=== PATIENT | female | born 1955 | race Caucasian/White ===

== ENCOUNTER 2018-08-03 14:00 | Outpatient (RCR) | payer OTHER, MEDICARE, SELFPAY | END 2018-08-03 14:05 | disposition home or self-care (01) | LOC: PT 14:00 | PROVIDERS: Visit Provider Family Medicine | DX: M54.9 Dorsalgia, unspecified (principal); M54.32 Sciatica, left side | CPT/HCPCS: 97014; 97110; 97163; G0283 ==

== ENCOUNTER → 2021-05-05 20:03 | Outpatient (CLI) | payer OTHER, MEDICARE, SELFPAY | PROVIDERS: Visit Provider Nurse Practitioner Family | DX: Z20.822 Contact with and (suspected) exposure to COVID-19 (principal) | CPT/HCPCS: C9803; U0003; U0005 ==

== ENCOUNTER → 2021-06-12 13:09 | Outpatient (CLI) | payer OTHER, MEDICARE, SELFPAY | PROVIDERS: Visit Provider Nurse Practitioner | DX: Z20.822 Contact with and (suspected) exposure to COVID-19 (principal) | CPT/HCPCS: C9803; U0003; U0005 ==

== ENCOUNTER → 2021-06-27 16:58 | Outpatient (CLI) | payer OTHER, MEDICARE, SELFPAY | PROVIDERS: Visit Provider Nurse Practitioner | DX: U07.1 COVID-19 (principal) | CPT/HCPCS: C9803; U0003; U0005 ==

== ENCOUNTER → 2021-07-02 16:25 | Outpatient (CLI) | payer OTHER, MEDICARE, SELFPAY | PROVIDERS: PCP Emergency Medicine; Visit Provider Nurse Practitioner | DX: U07.1 COVID-19 (principal) | CPT/HCPCS: C9803; U0003; U0005 ==

== ENCOUNTER → 2021-07-04 17:52 | Outpatient (CLI) | payer OTHER, MEDICARE, SELFPAY | PROVIDERS: Visit Provider Nurse Practitioner | DX: U07.1 COVID-19 (principal) | CPT/HCPCS: C9803; U0003; U0005 ==

== ENCOUNTER 2022-09-04 12:41 | Emergency (ER) | payer OTHER, MEDICARE, SELFPAY ==
[2022-09-04 13:00] VITALS: BP 104/42; PULSE 74; RESP 20; TEMP 36.7; O2SAT 95; BMI 34.7
--- NOTE | 2022-09-04 13:13 | EXP.UTC ---
Discharge Plan Disposition Patient Disposition: Home, Self-Care Condition: Good Prescriptions Prescriptions: New nitrofurantoin monohyd/m-cryst [Macrobid] 100 mg capsule 100 mg PO Q12H 7 Days Qty: 14 0RF Rx Instructions: must administer with a meal/food No Action amoxicillin 500 mg capsule 500 mg PO Q12H 10 Days Qty: 20 0RF benazepril 20 mg tablet 20 mg PO ONCE furosemide 40 mg tablet 40 mg PO ONCE potassium chloride 10 mEq capsule, extended release 10 meq PO BID clopidogrel [Plavix] 75 mg tablet 75 mg PO ONCE pantoprazole [Protonix] 40 mg tablet,delayed release (DR/EC) 40 mg PO QAM aspirin [Adult Low Dose Aspirin] 81 mg tablet,delayed release (DR/EC) 81 mg PO ONCE atorvastatin [Lipitor] 40 mg tablet 40 mg PO ONCE gabapentin 100 mg capsule 100 mg PO QHS levetiracetam [Keppra] 250 mg tablet 250 mg PO ONCE multivitamin,hd-xgso-pjyhxouh [Complete Multivitamin] tablet 1 tab PO ONCE metoprolol succinate 25 mg tablet extended release 24 hr 25 mg PO ONCE Referrals Follow up/Referrals: Deangelo Paulino MD [Primary Care Provider] - See instructions Activity Restrictions/Add. Instructions Additional Instructions/Restrictions: *Increase fluids. Water not Soda or Tea *Start antibiotic immediately and be sure to take as ordered for the FULL length of time although you should start to see improvement over the next 48 hours *Be SURE to follow up anytime for new or worsening symptoms with your family doctor. AND in 48 hours for urine culture results with your family doctor, if you do not have a doctor then you may call back to the [facility] for urine culture results and further treatment. We do recommend that you choose and establish care with a Primary Care Physician. ?AND follow up with them ?in 10-14 days to repeat UA to ensure infection is resolved and blood no longer present *Be sure to let your PCP know that we sent urine cultures from the [facility] so they can follow up to ensure that you area the on the correct antibiotic Call your doctor office and make appointment for 48 hours (2 days from today) ?to follow up and get the results of your urine culture and further treatment Clinical Impressions Clinical Impression: UTI (urinary tract infection) Instructions Patient Instructions: DI for Urinary Tract Infection (UTI), Urinary Tract Infection, Nitrofurantoin Discharge [place] [facility] [place] Stated complaint: pressure when urinates Time Seen by Provider: 09/04/22 13:13 History of Present Illness Provider Complaint: Patient states that she feels like she may have a UTI States that she is having pressure like feeling when she urinates along with feeling or urgency and frequency States that feels like what it did when she had a UTI before Denies fever chills or pain Related Data Home Medications Medication Instructions Recorded Confirmed aspirin 81 mg tablet,delayed 81 mg PO ONCE 08/20/17 05/05/21 release (Adult Low Dose Aspirin) atorvastatin 40 mg tablet (Lipitor) 40 mg PO ONCE 08/20/17 05/05/21 benazepril 20 mg tablet 20 mg PO ONCE 08/20/17 05/05/21 clopidogrel 75 mg tablet (Plavix) 75 mg PO ONCE 08/20/17 05/05/21 furosemide 40 mg tablet 40 mg PO ONCE 08/20/17 05/05/21 gabapentin 100 mg capsule 100 mg PO QHS 08/20/17 05/05/21 levetiracetam 250 mg tablet 250 mg PO ONCE 08/20/17 05/05/21 (Keppra) metoprolol succinate 25 mg 25 mg PO ONCE 08/20/17 05/05/21 tablet,extended release 24 hr multivitamin,sh-rswt-ghluhhmx 1 tab PO ONCE 08/20/17 05/05/21 (Complete Multivitamin tablet) pantoprazole 40 mg tablet,delayed 40 mg PO QAM 08/20/17 05/05/21 release (Protonix) potassium chloride 10 mEq 10 meq PO BID 08/20/17 05/05/21 capsule,extended release Previous Rx's Medication Instructions Recorded amoxicillin 500 mg capsule 500 mg PO Q12H sinusitis 10 days 05/05/21 #20 caps nitrofurantoin 100 mg PO Q12H 7
[2022-09-04 13:14] VITALS: BP 104/42; PULSE 74; RESP 20; TEMP 36.7; O2SAT 95
[2022-09-04 13:19] LABS: Apearance,Urine Cloudy (Clear); Color,Urine Yellow (Yellow)
[2022-09-04 13:20] LABS: Specific Gravity, Urine 1.015 (1.005-1.030)
[2022-09-04 13:21] LABS: Bilirubin,Urine Negative (Negative); Blood, Urine 3+ (Negative); Glucose,Urine (UA) Negative (Negative); Ketones,Urine Negative (Negative); Protein,Urine 2+ (Negative); UTC Leukocyte Esterase,Urine 2+ (Negative); UTC Nitrate,Urine Negative (Negative); Urobilinogen,Urine 0.2 EU/dl (0.2)
== END 2022-09-04 13:28 | disposition home or self-care (01) ==
PROVIDERS: Emergency Provider Nurse Practitioner; PCP Family Medicine
DX: N39.0 Urinary tract infection, site not specified (principal); B96.20 Unspecified Escherichia coli [E. coli] as the cause of diseases classified elsewhere
CPT/HCPCS: 81003; 87086; 87088; 87186; 99212; 99214; G0463

== ENCOUNTER 2022-10-22 11:39 | Emergency (ER) | payer OTHER, MEDICARE, SELFPAY ==
[2022-10-22 12:04] VITALS: BP 130/59; PULSE 63; RESP 16; TEMP 36.9; O2SAT 97; BMI 42.0
[2022-10-22 12:05] LABS: Apearance,Urine Cloudy (Clear); Color,Urine Dark Yellow (Yellow); PH,Urine 5.5 (5.0-8.5); Protein,Urine 1+ (Negative)
[2022-10-22 12:06] LABS: Bilirubin,Urine Negative (Negative); Blood, Urine 3+ (Negative); Glucose,Urine (UA) Negative (Negative); Ketones,Urine Negative (Negative); UTC Leukocyte Esterase,Urine 3+ (Negative); UTC Nitrate,Urine Negative (Negative); Urobilinogen,Urine 0.2 EU/dl (0.2)
--- NOTE | 2022-10-22 12:14 | EXP.UTC ---
Discharge Plan Disposition Patient Disposition: Home, Self-Care Condition: Good Prescriptions Prescriptions: New cefdinir 300 mg capsule 300 mg PO BID 10 Days Qty: 20 0RF phenazopyridine [Pyridium] 200 mg tablet 200 mg PO Q8H 2 Days Qty: 6 0RF No Action amoxicillin 500 mg capsule 500 mg PO Q12H 10 Days Qty: 20 0RF benazepril 20 mg tablet 20 mg PO ONCE furosemide 40 mg tablet 40 mg PO ONCE potassium chloride 10 mEq capsule, extended release 10 meq PO BID clopidogrel [Plavix] 75 mg tablet 75 mg PO ONCE pantoprazole [Protonix] 40 mg tablet,delayed release (DR/EC) 40 mg PO QAM aspirin [Adult Low Dose Aspirin] 81 mg tablet,delayed release (DR/EC) 81 mg PO ONCE atorvastatin [Lipitor] 40 mg tablet 40 mg PO ONCE gabapentin 100 mg capsule 100 mg PO QHS levetiracetam [Keppra] 250 mg tablet 250 mg PO ONCE multivitamin,yq-cksy-stdquxzi [Complete Multivitamin] tablet 1 tab PO ONCE metoprolol succinate 25 mg tablet extended release 24 hr 25 mg PO ONCE nitrofurantoin monohyd/m-cryst [Macrobid] 100 mg capsule 100 mg PO Q12H 7 Days Qty: 14 0RF Rx Instructions: must administer with a meal/food Referrals Follow up/Referrals: Deangelo Paulino MD [Primary Care Provider] - See instructions Activity Restrictions/Add. Instructions Additional Instructions/Restrictions: *Increase fluids. Water not Soda or Tea *Start antibiotic immediately and be sure to take as ordered for the FULL length of time although you should start to see improvement over the next 48 hours *Pyridium as needed Remember this medication will turn your urine . This is normal but it will stain what ever it gets on *You should not use Pyridium for more than 48 hours. If so , follow up with your primary physician to review urine culture and ensure that antibiotic is adequate for infection *Be SURE to follow up anytime for new or worsening symptoms with your family doctor. AND in 48 hours for urine culture results with your family doctor, if you do not have a doctor then you may call back to the [facility] [[email or web address]] for urine culture results and further treatment. We do recommend that you choose and establish care with a Primary Care Physician. ?AND follow up with them ?in 10-14 days to repeat UA to ensure infection is resolved and blood no longer present *Be sure to let your PCP know that we sent urine cultures from the [facility] [[email or web address]] so they can follow up to ensure that you area the on the correct antibiotic Call your doctor office and make appointment for 48 hours (2 days from today) ?to follow up and get the results of your urine culture and further treatment Clinical Impressions Clinical Impression: UTI (urinary tract infection) Instructions Patient Instructions: DI for Urinary Tract Infection (UTI), Urinary Tract Infection Discharge ED Provider: Mayra Almanza [facility] [place] HPI General Stated complaint: Burning w/ urination, pressure Mode of Arrival: Ambulatory Source of Information: Patient Limitations: No Limitations Time Seen by Provider: 10/22/22 12:14 Description of Symptoms (Recalled from Triage Doc. by RN): pt c/o burning/pressure with urination and urinary frequency ongoing since 10/17 HEENT Symptoms (Recalled from RN notes): No Resp Symptoms (Recalled from RN notes): No Skin Symptoms (Recalled from RN notes): No MS Symptoms (Recalled from RN notes): No Functional Status (Recalled from RN notes): wnl History of Present Illness Provider Complaint: Patient states that she was seen and treated for UTI a few months ago and then started with the same symptoms earlier last week States that she has been having burning with urination and feeling of pressure and urgency States feels like it did when she had UTI before Related Data Home Medications Medication Instructions Recorded Confirmed aspirin 81 mg tablet,delayed 81 mg PO ONCE 08/20/17 05/05/21 release (Adult Low Dose Aspirin) atorvastatin
[2022-10-22 12:25] VITALS: BP 130/59; PULSE 63; RESP 16; TEMP 36.9
== END 2022-10-22 12:27 | disposition home or self-care (01) ==
PROVIDERS: Emergency Provider Nurse Practitioner; PCP Family Medicine
DX: N39.0 Urinary tract infection, site not specified (principal); B96.89 Other specified bacterial agents as the cause of diseases classified elsewhere
CPT/HCPCS: 81003; 87086; 87088; 87186; 99212; 99214; G0463

== ENCOUNTER 2023-12-18 11:01 | Emergency (ER) | payer MEDICARE, OTHER, SELFPAY ==
[2023-12-18 11:15] VITALS: BP 124/68; PULSE 54; RESP 20; TEMP 36.4; O2SAT 98; BMI 40.6
--- NOTE | 2023-12-18 11:34 | ED_ITS ---
Discharge Plan Disposition Patient Disposition: Home, Self-Care Condition: Good Prescriptions Prescriptions: No Action amoxicillin 500 mg capsule 500 mg PO Q12H 10 Days Qty: 20 0RF benazepril 20 mg tablet 20 mg PO ONCE furosemide 40 mg tablet 40 mg PO ONCE potassium chloride 10 mEq capsule, extended release 10 meq PO BID clopidogrel [Plavix] 75 mg tablet 75 mg PO ONCE pantoprazole [Protonix] 40 mg tablet,delayed release (DR/EC) 40 mg PO QAM aspirin [Adult Low Dose Aspirin] 81 mg tablet,delayed release (DR/EC) 81 mg PO ONCE atorvastatin [Lipitor] 40 mg tablet 40 mg PO ONCE gabapentin 100 mg capsule 100 mg PO QHS levetiracetam [Keppra] 250 mg tablet 250 mg PO ONCE multivitamin,wt-hjba-nrovlgkv [Complete Multivitamin] tablet 1 tab PO ONCE metoprolol succinate 25 mg tablet extended release 24 hr 25 mg PO ONCE nitrofurantoin monohyd/m-cryst [Macrobid] 100 mg capsule 100 mg PO Q12H 7 Days Qty: 14 0RF Rx Instructions: must administer with a meal/food cefdinir 300 mg capsule 300 mg PO BID 10 Days Qty: 20 0RF phenazopyridine [Pyridium] 200 mg tablet 200 mg PO Q8H 2 Days Qty: 6 0RF Referrals Follow up/Referrals: Deangelo Paulino MD [Primary Care Provider] - See instructions Activity Restrictions/Add. Instructions Additional Instructions/Restrictions: debrox drops- 5 drops for 5 days once a month follow up with pcp if needed return if symptoms worsen or do not improve Clinical Impressions Clinical Impression: Bilateral impacted cerumen Instructions Patient Instructions: Cerumen Impaction [facility] [place] General Stated complaint: ears stuffy Mode of Arrival: Ambulatory Source of Information: Patient Limitations: No Limitations Time Seen by Provider: 12/18/23 11:34 Description of Symptoms (Recalled from Triage Doc. by RN): PATIENT C/O DIZZINESS, HEAD CONGESTION, AND BILATERAL EAR PAIN WITH DECREASED HEARING X 2.5 WEEKS HEENT Symptoms (Recalled from RN notes): Yes Resp Symptoms (Recalled from RN notes): No Skin Symptoms (Recalled from RN notes): No MS Symptoms (Recalled from RN notes): No Functional Status (Recalled from RN notes): WNL History of Present Illness Provider Complaint: 68 yr old female presents for decrease hearing karlos ears, ears feeling full,dizzy and feeling like she has water in her ears Related Data Home Medications Medication Instructions Recorded Confirmed aspirin 81 mg tablet,delayed 81 mg PO ONCE 08/20/17 05/05/21 release (Adult Low Dose Aspirin) atorvastatin 40 mg tablet (Lipitor) 40 mg PO ONCE 08/20/17 05/05/21 benazepril 20 mg tablet 20 mg PO ONCE 08/20/17 05/05/21 clopidogrel 75 mg tablet (Plavix) 75 mg PO ONCE 08/20/17 05/05/21 furosemide 40 mg tablet 40 mg PO ONCE 08/20/17 05/05/21 gabapentin 100 mg capsule 100 mg PO QHS 08/20/17 05/05/21 levetiracetam 250 mg tablet 250 mg PO ONCE 08/20/17 05/05/21 (Keppra) metoprolol succinate 25 mg 25 mg PO ONCE 08/20/17 05/05/21 tablet,extended release 24 hr multivitamin,cz-swuu-xluytybj 1 tab PO ONCE 08/20/17 05/05/21 (Complete Multivitamin tablet) pantoprazole 40 mg tablet,delayed 40 mg PO QAM 08/20/17 05/05/21 release (Protonix) potassium chloride 10 mEq 10 meq PO BID 08/20/17 05/05/21 capsule,extended release Previous Rx's Medication Instructions Recorded amoxicillin 500 mg capsule 500 mg PO Q12H sinusitis 10 days 05/05/21 #20 caps nitrofurantoin 100 mg PO Q12H 7 days #14 caps 09/04/22 monohydrate/macrocrystals 100 mg capsule (Macrobid) cefdinir 300 mg capsule 300 mg PO BID 10 days #20 caps 10/22/22 phenazopyridine 200 mg tablet 200 mg PO Q8H pain 2 days #6 tabs 10/22/22 (Pyridium) Allergies Allergy/AdvReac Type Severity Reaction Status Date / Time acetaminophen [From Percocet] AdvReac Mild Verified 10/22/22 12:09 oxycodone [From Percocet] AdvReac Mild Verified 10/22/22 12:09 Worker's Comp Is this a Worker's Comp case?: No PFS PFS Disclaimer: The information contained in this section may have been updated after the patient was seen, as this information can be updated by other users. Social History , [employer]) Smoking Status: Never smoker alcohol intake: never substance use type: denies use current occupational status: retired Travel in the last 8 weeks: None ROS Obtained: Yes All systems reviewed & no additional complaints except as documented Constitutional Constitutional: Reports system reviewed and no additional complaints, except as documented Eyes Eyes: Reports system reviewed and no additional complaints, except as documented ENT Ears, Nose, Mouth, and Throat: Reports system reviewed and no additional complaints, except as documented, Reports as per HPI, Reports abnormal hearing, Reports dizziness and Reports otalgia Cardiovascular Cardiovascular: Reports system reviewed and no additional complaints, except as documented Respiratory Respiratory: Reports system reviewed and no additional complaints, except as documented Gastrointestinal Gastrointestingal: Reports system reviewed and no additional complaints, except as documented Musculoskeletal Musculoskeletal: Reports system reviewed and no additional complaints, except as documented Integumentary/Breasts Skin/Breast: Reports system reviewed and no additional complaints, except as documented Neurologic Neurologic: Reports system reviewed and no additional complaints, except as documented, Reports as per HPI, Reports abnormal hearing and Reports dizziness Hematologic/Lymphatic Henatologic/Lymphatic: Reports system reviewed and no additional complaints, e xcept as documented Allergic/Immunologic Allergic/Immunologic: Reports system reviewed and no additional complaints, except as documented Physical Exam General General appearance: alert and in no apparent distress Head Head exam: atraumatic Eye Eye exam: Present normal appearance ENT ENT exam: Present mucous membranes moist Expanded ENT Exam TM/Canal exam: Bilateral TM: cerumen impaction Respiratory Respiratory exam: Present normal lung sounds bilaterally Cardiovascular Cardiovascular exam: Present regular rate and normal rhythm Neurological Exam Neurological exam: Present alert and oriented X3 Skin Skin exam: Present warm and intact Medical Decision Making Medical Records Medical records reviewed: Yes I reviewed the patient's medical records. Bakari Inquiry Pt receiving controlled substance: No Bakari was queried for this patient: No Vital Signs: 12/18/23 11:15 Temperature 97.6 F Temperature Source Oral Pulse Rate [Left Brachial] 54 L Respiratory Rate 20 Blood Pressure [Left Arm] 124/68 Blood Pressure Mean [Left Arm] 86 Blood Pressure Source [Left Arm] Automatic Cuff Blood Pressure Position [Left Arm] Sitting 02 Sat by Pulse Oximetry 98 Oxygen Delivery Method Room Air
[2023-12-18 11:51] VITALS: BP 124/68; PULSE 54; RESP 20; TEMP 36.4; O2SAT 98
== END 2023-12-18 11:55 | disposition home or self-care (01) ==
PROVIDERS: Emergency Provider Nurse Practitioner Family; PCP Family Medicine
DX: R42 Dizziness and giddiness (principal); H92.03 Otalgia, bilateral; H61.23 Impacted cerumen, bilateral
CPT/HCPCS: 99212; 99213; G0463

== ENCOUNTER 2024-06-05 12:47 | Emergency (ER) | payer MEDICARE, OTHER, SELFPAY ==
[2024-06-05 14:00] VITALS: BP 133/55; PULSE 50; RESP 19; TEMP 36.6; O2SAT 99; BMI 43.0
--- NOTE | 2024-06-05 14:15 | ED_ITS ---
Discharge Plan Disposition Patient Disposition: Home, Self-Care Condition: Good Prescriptions Prescriptions: New azithromycin [Zithromax Z-Damon] 250 mg tablet See Rx Instructions .ROUTE .COMPLEX 5 Days Qty: 6 0RF Rx Instructions: For 250 mg dose pack: take 500 mg today (day 1), then 250 mg for 4 days (days 2-5) guaifenesin [Mucinex] 600 mg tablet extended release 12hr 600 mg PO BID PRN (Reason: cough) Qty: 20 0RF No Action oseltamivir 75 mg capsule 75 mg PO BID 5 Days Qty: 10 0RF atorvastatin 40 mg tablet 40 mg PO HS Patient Comments: TAKE 1 TABLET BY MOUTH AT BEDTIME ketoconazole 2 % shampoo 1 applic TOPICAL DAILY Patient Comments: APPLY ONE APPLICATION TO THE AFFECTED AREA ONCE DAILY metoprolol succinate 50 mg tablet extended release 24 hr 50 mg PO DAILY Patient Comments: TAKE 1 TABLET BY MOUTH DAILY potassium chloride 10 mEq tablet extended release 30 meq PO DAILY Patient Comments: TAKE 3 TABLETS BY MOUTH DAILY clopidogrel 75 mg tablet 75 mg PO DAILY Patient Comments: TAKE 1 TABLET BY MOUTH DAILY levetiracetam 250 mg tablet 250 mg PO DAILY Patient Comments: TAKE 1 TABLET BY MOUTH DAILY pantoprazole 40 mg tablet,delayed release (DR/EC) 40 mg PO DAILY Patient Comments: TAKE 1 TABLET BY MOUTH DAILY benazepril 20 mg tablet 20 mg PO TID Patient Comments: TAKE 1 TABLET BY MOUTH THREE TIMES DAILY gabapentin 100 mg capsule 300 mg PO HS Patient Comments: TAKE 3 CAPSULES BY MOUTH AT BEDTIME Referrals Follow up/Referrals: Deangelo Paulino MD [Primary Care Provider] - See instructions Activity Restrictions/Add. Instructions Additional Instructions/Restrictions: * Start antibiotic today. Be sure to complete entire prescription even if feeling better * Monitor temp. Tylenol every 4 hours as needed and / or ibuprofen every 6 hours as needed ( As long as your primary care physician has told you that it ok to take both. For fever/aches/pains ER if no less than 101 despite Tylenol or Motrin * Humidifier/vaporizer or hot steamy shower * Mucinex during the day for your cough and cough suppressant only at night. Be sure to drink lots of water. Insurance may not cover a prescriptions for mucinex. Might be cheaper to get 400mg tablets and take 2 tablet in the morning, mid-day and evening with lots of water. *Dana Bautista will not cause drowsiness but use at bedtime to help stop cough so that you may get some rest. Follow up IMMEDIATELY for new or worsening of symptoms OR no noticeable improvement over the next 48-72 hours. 911 immediately for any life threatening symptoms such as chest pain or difficulty breathing Clinical Impressions Clinical Impression: Bronchitis Instructions Patient Instructions: Acute Bronchitis Print Language Print Language: Jamaican Discharge ED Provider: Mayra Almanza [facility] [place] H[place] General Stated complaint: Flu+, congestion Mode of Arrival: Ambulatory Source of Information: Patient Limitations: No Limitations Time Seen by Provider: 06/05/24 14:16 Description of Symptoms (Recalled from Triage Doc. by RN): PATIENT C/O PRODUCTIVE COUGH AND CHEST CONGESTION. PATIENT REPORTS BEING DIAGNOSED WITH FLU ON WEDNESDAY HEENT Symptoms (Recalled from RN notes): No Resp Symptoms (Recalled from RN notes): Yes Skin Symptoms (Recalled from RN notes): No MS Symptoms (Recalled from RN notes): No Functional Status (Recalled from RN notes): WNL History of Present Illness Provider Complaint: Patient states that she started feeling bad before gris and was dx with flu last week States that she is worried it has settled in her chest States that she has been having cough and at times coughing up green mucous States that she isnt having any fever or SOA but the congestion in her chest has continued to get worse so she came in Related Data Home Medications ?Medication ?Instructions ?Recorded ?Confirmed atorvastatin 40 mg tablet 40 mg PO HS 06/05/24 06/05/24 benazepril 20 mg tablet 20 mg PO TID 06/05/24 06/05/24 clopidogrel 75 mg tablet 75 mg PO DAILY 06/05/24 06/05/24 gabapentin 100 mg capsule 300 mg PO HS 06/05/24 06/05/24 ketoconazole 2 % shampoo 1 applic topical DAILY 06/05/24 06/05/24 levetiracetam 250 mg tablet 250 mg PO DAILY 06/05/24 06/05/24 metoprolol succinate 50 mg 50 mg PO DAILY 06/05/24 06/05/24 tablet,extended release 24 hr pantoprazole 40 mg tablet,delayed 40 mg PO DAILY 06/05/24 06/05/24 release potassium chloride 10 mEq 30 meq PO DAILY 12/30/24 12/30/24 tablet,extended release Previous Rx's ?Medication ?Instructions ?Recorded oseltamivir 75 mg capsule 75 mg PO BID 5 days #10 caps 06/01/24 azithromycin 250 mg tablet See Rx Instructions PO .COMPLEX 5 06/05/24 (Zithromax Z-Damon) days #6 tabs guaifenesin 600 mg tablet, 600 mg PO BID PRN cough #20 tabs 06/05/24 extended release 12 hr (Mucinex) Allergies Allergy/AdvReac Type Severity Reaction Status Date / Time acetaminophen (From Percocet) AdvReac Mild Verified 06/01/24 15:17 oxycodone (From Percocet) AdvReac Mild Verified 06/01/24 15:17 Worker's Comp Is this a Worker's Comp case?: No [facility] Disclaimer: The information contained in this section may have been updated after the patient was seen, as this information can be updated by other users. Social History Smoking Status: Never smoker alcohol intake: never substance use type: denies use current occupational status: retired Travel in the last 8 weeks: None Have you lived/traveled outside [place] in past 30 days?: No Contact w/someone who lives/traveled outside [place] past 30 days?: No Exposure to someone with infectious disease in past 14 days?: Yes Do you have a fever (greater than 100.4 F or 38 C)?: No Have you tested positive for COVID-19: No Exposed to someone with COVID-19 in past 14 days?: No Do you have a sore throat?: No Do you have a cough?: No Do you have any weakness?: No Do you have any diarrhea?: No Are you experiencing any unusual bleeding?: No Do you have any muscle aches/pain?: No Do you have any abdominal pain?: No Are you experiencing loss of taste or smell?: No ROS Obtained: Yes All systems reviewed & no additional complaints except as documented and Yes Systems reviewed as appropriate & no additional complaints except as documented Constitutional Constitutional: Reports system reviewed and no additional complaints, except as documented and Reports as per HPI ENT Ears, Nose, Mouth, and Throat: Reports system reviewed and no additional complaints, except as documented, Reports as per HPI, Reports nasal congestion and Reports sinus pressure Cardiovascular Cardiovascular: Reports system reviewed and no additional complaints, except as documented and Reports as per HPI Respiratory Respiratory: Reports system reviewed and no additional complaints, except as documented, Reports as per HPI, Denies shortness of breath, Reports chest congestion and Reports cough Gastrointestinal Gastrointestingal: Reports system reviewed and no additional complaints, except as documented and as per HPI Physical Exam General General appearance: alert and in no apparent distress ENT ENT exam: Present mucous membranes moist Expanded ENT Exam Nose exam: Present sinus tenderness Respiratory Respiratory exam: Present normal lung sounds bilaterally and other (mild rhonchi clears with cough); Absent respiratory distress or wheezes Cardiovascular Cardiovascular exam: Present regular rate, normal rhythm and normal heart sounds Abdominal Exam Abdominal exam: Present soft and normal bowel sounds; Absent distention or tenderness Neurological Exam Neurological exam: Present alert, oriented X3 and normal gait Medical Decision Making Medical Records Screening: Per USPSTF and CDC recommendations, given the prevalence of disease in our region, it is our hospital?s policy to screen for HIV and viral Hepatitis for all patients aged 18 and over and those with ongoing risk factors. Bakari Inquiry Pt receiving controlled substance: No Bakari was queried for this patient: No Vital Signs: 06/05/24 14:00 Temperature 97.8 F Temperature Source Oral Pulse Rate [Right Brachial] 50 L Respiratory Rate 19 Blood Pressure [Right Arm] 133/55 L Blood Pressure Mean [Right Arm] 81 Blood Pressure Source [Right Arm] Automatic Cuff Blood Pressure Position [Right Arm] Sitting 02 Sat by Pulse Oximetry 99 Oxygen Delivery Method Room Air Medical Decision Narrative: Discussed CXR patient declined will start on azithromycin and have her follow up with PCP if no improvement
[2024-06-05 14:30] VITALS: BP 133/55; PULSE 50; RESP 19; TEMP 36.6; O2SAT 99
== END 2024-06-05 14:33 | disposition home or self-care (01) ==
PROVIDERS: Emergency Provider Nurse Practitioner; PCP Family Medicine
DX: J40 Bronchitis, not specified as acute or chronic (principal); R05.9 Cough, unspecified; R09.89 Other specified symptoms and signs involving the circulatory and respiratory systems; R09.81 Nasal congestion; J34.89 Other specified disorders of nose and nasal sinuses
CPT/HCPCS: 99212; G0381